=== PATIENT | female | born 1985 | race Caucasian/White ===

== ENCOUNTER 2022-01-30 06:21 | Day surgery (SDC) | payer OTHER ==
[~2022-01-30] VITALS: Ht 160 cm; Wt 115.7 kg
[2022-01-30] MEDS ORDERED: INSULIN LISPRO (NovoLOG) PER UNIT SC PRN (06:45)
[2022-01-30] MEDS ORDERED: LR 1,000 ML IV SCH ×2 (06:45→08:50)
[2022-01-30] MEDS ORDERED: LIDOCAINE 2% W/ EPINEPHRINE 1.7 ML DENTAL INJ As Ordered ONE (07:13)
[2022-01-30] MEDS ORDERED: AMPICILLIN SOD/SULBACTAM SOD 3 GM in D5W MINI-BAG PLUS 100 ML IV ONE (07:15)
[2022-01-30] MEDS ORDERED: fentaNYL 100 MCG/2 ML INJECTION As Ordered ONE (07:17)
[2022-01-30] MEDS ORDERED: ROCURONIUM BROMIDE 50MG/5ML VIAL As Ordered ONE (07:17)
[2022-01-30] MEDS ORDERED: MIDAZOLAM INJ 2MG/2ML VIAL (J2250 PER 1MG) As Ordered ONE (07:17)
[2022-01-30] MEDS ORDERED: KETOROLAC 60MG 2ML VIAL As Ordered ONE (07:17)
[2022-01-30] MEDS ORDERED: propofoL 200 MG/20 ML VIAL As Ordered ONE (07:17)
[2022-01-30] MEDS ORDERED: SUGAMMADEX SODIUM 500 MG/5 ML VIAL (BRIDION) As Ordered ONE (07:17)
[2022-01-30] MEDS ORDERED: ONDANSETRON 4MG 2ML VIAL As Ordered ONE (07:17)
[2022-01-30] MEDS ORDERED: LIDOCAINE 2% 100MG/5ML SDV (FOR ANES.) As Ordered ONE (07:17)
[2022-01-30] MEDS ORDERED: METOCLOPRAMIDE INJ 10MG/2ML VIAL As Ordered ONE (07:21)
[2022-01-30] MEDS ORDERED: PHENYLEPHRINE 0.5% NASAL SPRAY 15 ML As Ordered ONE (07:41)
[2022-01-30] MEDS: BUPIVACAINE LIPOSOME/PF 1.3% 20ML VIAL (13.3MG/ML)(EXPAREL) As Ordered ONE ×2 (08:36→08:40)
[2022-01-30] MEDS ORDERED: fentaNYL 100 MCG/2 ML INJECTION IV PRN (08:50)
[2022-01-30] MEDS ORDERED: ONDANSETRON 4MG 2ML VIAL IV PRN (08:50)
[2022-01-30] MEDS ORDERED: oxyCODONE 5MG TAB PO PRN (08:50)
[2022-01-30] MEDS ORDERED: MORPHINE 2 MG/ML 1ML VIAL IV PRN (08:50)
[2022-01-30] MEDS ORDERED: METOCLOPRAMIDE INJ 10MG/2ML VIAL IV PRN (08:50)
[2022-01-30 10:17] VITALS: BP 138/76
== END 2022-01-30 10:19 | disposition home or self-care (01) ==
LOC: M SDC 06:21 → EDUNIT# 07:30 → M SDC 10:19
PROVIDERS: ATTEND Dentist
DX: K02.9 Dental caries, unspecified (principal); K21.9 Gastro-esophageal reflux disease without esophagitis; F41.9 Anxiety disorder, unspecified; E66.9 Obesity, unspecified
CPT/HCPCS: 81025; 88300; C9290; D7210; D7310; D9223; J0295; J1100; J1885; J2250; J2405; J2765; J3010

== ENCOUNTER → 2025-01-31 | Outpatient (CLI) | payer OTHER ==
[2025-01-31 13:59] LABS: PLATELET COUNT, AUTOMATED 257 10^3/uL (150-450)
[2025-01-31 14:44] LABS: Trichomonas vaginalis (AMP) NOT DETECTED (NEGATIVE)
[2025-01-31 15:08] LABS: GC DNA AMPLIFICATION NEGATIVE (NEGATIVE)
[2025-02-01 01:34] LABS: HIV 1&2 SCREEN NEGATIVE (NEGATIVE)
[2025-02-01 01:42] LABS: HEPATITIS C VIRUS ABY INDEX 0.04 INDEX (<0.8)
== END ==
LOC: M PLALAB 09:12
PROVIDERS: ATTEND Student in an Organized Health Care Education/Training Program
DX: Z34.80 Encounter for supervision of other normal pregnancy, unspecified trimester (principal)